=== PATIENT | female | born 1965 | race Caucasian/White ===

== ENCOUNTER → 2017-03-02 | Outpatient (CLI) | payer OTHER ==
[~2017-03-02] MED LIST: CELEXA20 MG PO; LEXAPRO20 MG OR; LISINOPRIL-HCT1 EACH OR; VENTOLIN17 GM; VIBRAMYCIN 100100 M2 PO
== END ==
LOC: RAD 01:22
DX: N63 Unspecified lump in breast (principal); Z85.3 Personal history of malignant neoplasm of breast

== ENCOUNTER → 2017-03-09 | Outpatient (CLI) | payer OTHER ==
--- NOTE | ~2017-03-09 | S ---
[facility] [place] [address] SURGICAL PATH RPT PROCEDURE Name: ASMITA FUCHS Room #: [facility]..#: [id number] Admission: 03/09/17 Date of : 69 Discharge: Report #: [id number] Path Case #: [id number] PATHOLOGY REPORT COLLECTION DATE: 03/09/2017 RECEIVED DATE: 03/09/2017 SUBMITTING PHYS: Dr. Kirk Ca OTHER PHYS: Dr. 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 (See comment). COMMENT: Specimen type: Needle biopsy Tumor site: Left breast at 11:00, 3 cm fn Tumor quantitation: Involving multiple cores, longest contiguous focus measuring 1.2 cm on the slide Histologic type: Invasive ductal carcinoma with focal lobular features Histologic grade: Grade II, moderately differentiated Tubules, nuclei and mitoses: Tubules score = 3, nuclei score = 2, mitoses score = 2 LVSI: Indeterminate Microcalcifications: Not identified Markers: ER, HI, Her2 and Ki-67 Block: A1 A retail sales representative slide is co-reviewed with Dr. Concepción Ayala. The case is discussed with Pollo in the [facility] on 03/13/17 at approximately 9:30 AM. PATHOLOGIST: Nan Breaux M.D. REPORT ELECTRONICALLY SIGNED BY: Nan Breaux M.D. DATE/TIME: 03/13/2017 09:40 * * * * * * * * * * * * GROSS PATHOLOGY: Received in formalin labeled "Asmita Fuchs, left breast 11:00 3 cm from nipple," are multiple needle cores of yellow-valderrama fibrofatty tissue measuring 2.0 x 1.1 x 0.1 cm in aggregate dimensions. The [facility] [address] [place] [address] SURGICAL PATH RPT PROCEDURE Name: ASMITA FUCHS Room #: [facility].#: [id number] Admission: 03/09/17 Date of : 69 Discharge: Report #: [id number] Path Case #: [id number] tissue is submitted in its entirety in cassette A1. The cold ischemic time is less than 1 minute. The total formalin fixation time is 7 hours and 36 minutes. (CAA; 03/09/2017) CLINICAL HISTORY: Left breast mass INITIAL CPT CODE(S): A; 23025, 51389(4) Professional services performed by [facility] at [facility] [address], [place] [address] [facility] at [address] [place] [address], [address], [place] [address]. PROCEDURE REPORT (Order Date: 03/14/2017 00:00) INTERPRETATION: Quantitative image analysis was performed on block A1. Please see next page for scanned image of results. COMMENT: PATHOLOGIST: Concepción Ayala M.D. REPORT ELECTRONICALLY SIGNED BY: Concepción Ayala M.D. DATE/TIME: 03/16/2017 16:[address] [facility] [address] [place] [address] PHONE: [phone] DIRECTOR: Hector Dong M.D. * * * END OF REPORT * * *
== END | disposition home or self-care (01) ==
LOC: ULTRA 03:08
DX: C50.912 Malignant neoplasm of unspecified site of left female breast (principal)

== ENCOUNTER 2018-10-31 16:20 | Inpatient (IN) | payer OTHER ==
[~2018-10-31] VITALS: Ht 170.2 cm; Wt 151.0 kg
[2018-10-31] MEDS ORDERED: AROMASIN25 MG PO (17:03)
[2018-10-31] MEDS ORDERED: ATIVAN0.5 MG PO (17:04)
[2018-10-31] MEDS ORDERED: CIPRO500 MG PO (17:07)
[2018-10-31 17:17] LABS: ABSOLUTE NEUTROPHILS 2.7 thou/uL (1.4-8.2); BASOPHILS 1.1 % (0.0-2.0); EOSINOPHILS 1.4 % (0.0-3.0); HEMATOCRIT 38.3 % (37.0-47.0); HEMOGLOBIN 12.9 gm/dL (12.0-15.0); LYMPHOCYTES 18.3 % (24.0-44.0); MCH 31.3 pg (26.0-34.0); MCHC 33.7 g/dL (28.0-37.0); MCV 92.8 fL (80.0-100.0); MONOCYTES 8.1 % (1.0-8.0); PLATELET COUNT 220 thou/uL (150-400); POLYS 71.1 % (36.0-66.0); RBC 4.13 mil/uL (4.20-5.00); RDW 13.4 % (10.5-14.5); WBC 3.8 thou/uL (4.0-11.0)
[2018-10-31 17:21] LABS: CALCIUM 9.2 mg/dL (8.5-10.1); CREATININE 1.2 mg/dL (0.6-1.0); POTASSIUM 3.5 mmol/L (3.5-5.1)
[2018-10-31 17:27] LABS: ALBUMIN 3.6 g/dL (3.4-5.0); TOTAL BILIRUBIN 0.5 mg/dL (<0.1-1.0); TOTAL PROTEIN 7.7 g/dL (6.4-8.2)
--- NOTE | 2018-10-31 17:35 | NUR ---
CALLED AT [phone] TO GIVE REPORT FOR PT. 4W AERODYNAMICIST STATED THAT SHE DID NOT KNOW WHO WAS EVEN TAKING THE ROOM EVERYONE WAS BUSY AND WOULD CALL BACK ONCE SOMEONE SIGNED UP FOR PT.
--- NOTE | 2018-10-31 17:50 | NUR ---
ATTEMPTED TO GIVE REPORT ONCE AGAIN. APPRENTICESHIP CONSULTANT STATED THAT THERE WAS NO NURSE AVAILABLE TO TAKE REPORT.
[2018-10-31 18:24] VITALS: BP 135/84
[2018-10-31 18:35] VITALS: BP 175/70
--- NOTE | 2018-10-31 21:49 | NUR ---
Assumed care at 1845. Pt came in from ED complaining about SOB. She was Dx with flu at Dr Office today. ED dx her with influenza A, pneumonia and bronchospasm. She denies chest pain. Mild drainage below left breast. +1 edema on both feet. Demished lung sounds on the base. No identified needs at the moment. Will continue to monitor.
[2018-11-01 06:13] VITALS: BP 145/69
[2018-11-01 07:38] VITALS: BP 136/69
--- NOTE | 2018-11-01 10:25 | NUR ---
cm consulted. cm visited with pt via phone call. pt is a & o x 3, pleasant and able to make her needs know " not sure why you were consulted"/haven. pt report " independent, live home with son, 13 stairs to 2nd floor. no medical equip. employed, have insurance with rx coverage. no rehab or hh in past. thank you for check with me"/haven. no anticipated needs.
--- NOTE | 2018-11-01 11:54 | NUR ---
Nutrition: assess d/t consult for obesity. Pt admitted for flu. Hx of HTN, GERD, breast cancer. Pt reports no recent weight loss or loss of appetite. Has been able to eat okay while inpatient. Pt had no questions or concerns. Consider low risk.
[2018-11-01 14:51] VITALS: BP 145/67
--- NOTE | 2018-11-01 18:21 | NUR ---
Pt vs stable through out the shift. Pt is up at frantz and is able to go to the toilet on hr own. Isolation mainatained. No complaints or shortness of breathe verbalized.
[2018-11-01 20:29] VITALS: BP 168/72
--- NOTE | 2018-11-02 04:13 | NUR ---
PT RESTED THROUGH THE NIGHT VS HELLEN PT USED CALL LIGHT EFFECTIVELY PT UP AD COURTNEY NO ISSUES OVERNIGHT.
[2018-11-02 05:18] VITALS: BP 145/66
[2018-11-02] MEDS ORDERED: LEVAQUIN 500 M500 M3 PO (09:16)
[2018-11-02] MEDS ORDERED: OSELB75 PO (09:16)
--- NOTE | 2018-11-02 11:20 | NUR ---
Pt vs stable and has been afibrile. No dyspnea noted. Pt is independent for all adl;s and is tolerating hr diet. Seen by Dr. Maldonado, dc instructions given.
[2018-11-02 11:21] VITALS: BP 135/69
== END 2018-11-02 13:21 | disposition home or self-care (01) | DRG 871 ==
LOC: ER 16:20 → 4W 17:18 → EROBS 17:18 → 4W 18:21
PROVIDERS: Emergency Medicine; ADMIT Hospitalist
DX: A41.9 Sepsis, unspecified organism (principal); J11.00 Influenza due to unidentified influenza virus with unspecified type of pneumonia; J18.9 Pneumonia, unspecified organism; Z68.43 Body mass index [BMI] 50.0-59.9, adult; N61.0 Mastitis without abscess; I10 Essential (primary) hypertension; J45.909 Unspecified asthma, uncomplicated; F32.9 Major depressive disorder, single episode, unspecified; K21.9 Gastro-esophageal reflux disease without esophagitis; E66.01 Morbid (severe) obesity due to excess calories; Z88.8 Allergy status to other drugs, medicaments and biological substances; Z88.6 Allergy status to analgesic agent; Z88.1 Allergy status to other antibiotic agents; Z91.041 Radiographic dye allergy status; Z85.3 Personal history of malignant neoplasm of breast; Z79.899 Other long term (current) drug therapy
CPT/HCPCS: 10040